=== PATIENT | female | born 1955 | race Caucasian/White ===

== ENCOUNTER 2016-08-31 10:01 | Outpatient (CLI) | payer OTHER ==
[~2016-08-31 10:01] MED LIST: CELEXA40 MG PO; COUMADIN4 MG PO; COUMADIN6 MG PO; FOSAMAX70 MG; KLOR-CON 1010 MEQ PO; LASIX40 MG PO; LIPITOR10 MG PO; SOTALOL HCL80 MG; VITAMIN D-31000 UNIT PO
--- NOTE | 2016-08-31 10:29 | DIAGNOSTIC IMAGING REPORT ---
PROCEDURE: DEXA BONE DENSITY STUDY CLINICAL INDICATION: OSTEOPOROSIS COMPARISON: DEXA 08/08/2011 FINDINGS: LUMBAR SPINE: Bone mineral density 0.774 g/cm2, T score -2.5 osteoporosis which represents a 6.8% decrease from the previous study LEFT HIP: Bone mineral density 0.752 g/cm2, T score -1.6 osteopenia which represents a 3.3% decrease from the previous study LEFT FEMORAL NECK: Bone mineral density 0.607 g/cm2, T score -2.2 osteopenia which represents an 11.9% decrease from the previous study FRACTURE RISK CALCULATION ( when applicable): 10-year fracture risk of a major osteoporotic fracture and of a hip fracture not reported because some T-score at or below -2.5 (T score greater or equal to -1.0 to: NORMAL) (T score from -1.1 to -2.4: OSTEOPENIA) (T score ess than or equal to -2.5: OSTEOPOROSIS) IMPRESSION: 1. Lumbar spine osteoporosis and osteopenia in the hip and femoral neck
== END 2016-08-31 23:00 ==
LOC: XR SRH 10:01
DX: M81.8 Other osteoporosis without current pathological fracture (principal); M85.88 Other specified disorders of bone density and structure, other site